=== PATIENT | male | born 1955 | race Caucasian/White ===

== ENCOUNTER 2020-09-02 08:20 | Emergency (ER) | payer MEDICARE ==
[2020-09-02] MEDS ORDERED: Boostrix 0.5 ML (Tdap) VIAL ONE (08:51)
[2020-09-02] MEDS ORDERED: Cephalexin 250 MG CAP ONE (09:22)
== END 2020-09-02 09:25 | disposition home or self-care (01) ==
LOC: BURERS 08:20
DX: S61.212A Laceration without foreign body of right middle finger without damage to nail, initial encounter (principal); S61.214A Laceration without foreign body of right ring finger without damage to nail, initial encounter; S61.412A Laceration without foreign body of left hand, initial encounter; S40.022A Contusion of left upper arm, initial encounter; S20.212A Contusion of left front wall of thorax, initial encounter; I10 Essential (primary) hypertension; F17.220 Nicotine dependence, chewing tobacco, uncomplicated; F17.290 Nicotine dependence, other tobacco product, uncomplicated; Z23 Encounter for immunization; W26.8XXA Contact with other sharp object(s), not elsewhere classified, initial encounter
CPT/HCPCS: 90471; 90715

== ENCOUNTER 2024-10-23 20:06 | Emergency (ER) | payer MEDICARE ==
[2024-10-23] MEDS ORDERED: Nitroglycerin 0.4 MG TAB 1 EACH ONE (20:44)
[2024-10-23] MEDS ORDERED: Nitroglycerin 2% Ointment 1 INCH/1 GM Packet ONE (20:44)
[2024-10-23] MEDS ORDERED: Aspirin Chewable 81 MG TAB ONE (20:46)
[2024-10-23 21:05] LABS: ALT (SGPT) 20 U/L (Less than 45); AST (SGOT) 21 U/L (11-34); Albumin 4.0 g/dL (3.1-4.5); Alkaline Phosphatase 80 U/L (40-110); Anion Gap 19 mmol/L (10-20); BUN (Urea Nitrogen) 26 mg/dL (8.4-25.7); Bilirubin, Total 0.4 mg/dL (0.3-1.2); Calc. Creatinine Clearance 0 mL/min (70-130); Calcium 8.9 mg/dL (7.8-10.44); Carbon Dioxide 19 mmol/L (23-31); Chloride 106 mmol/L (98-107); Globulin 3.3 g/dL (2.4-3.5); Glucose 137 mg/dL (80-115); Potassium 4.1 mmol/L (3.5-5.1); Sodium 140 mmol/L (136-145)
[2024-10-23 21:07] LABS: Troponin I 0.012 ng/mL (< 0.028)
[2024-10-23 21:11] LABS: Hematocrit 40.7 % (42.0-52.0); Hemoglobin 14.7 g/dL (14.0-18.0); MDiff Complete? YES; Mean Corpuscular Hemoglobin 31.4 pg (27.0-31.0); Mean Corpuscular Volume 87.1 fl (78.0-98.0); Platelet Adequacy Comment Appears Adequate; Platelet Count 304 10x3/uL (130-400); Red Blood Cell (RBC) Count 4.68 mill/uL (4.70-6.10); White Blood Cell (WBC) Count 9.3 10x3/uL (4.8-10.8)
[2024-10-24] MEDS ORDERED: Nitroglycerin 0.4 MG TAB 1 EACH ONE (00:34)
== END 2024-10-24 00:07 | disposition short-term general hospital (02) ==
LOC: BURERS 20:06
DX: R07.89 Other chest pain (principal); F17.220 Nicotine dependence, chewing tobacco, uncomplicated; Z79.899 Other long term (current) drug therapy
CPT/HCPCS: 71045; 71275; 74174; 80053; 83880; 84484; 85025; 93005; 96374; J2272